=== PATIENT | female | born 1950 | race Caucasian/White ===

== ENCOUNTER 2021-02-24 16:14 | Inpatient (IN) | payer MEDICARE, BC ==
[2021-02-24] MEDS ORDERED: SODIUM CHLORIDE 0.9% 500 ML 500 ML IV ONE (17:18)
--- NOTE | 2021-02-24 17:37 | ED ---
Altered Mental Status HPI - General Chief Complaint: Altered Mental Status Stated Complaint: mental & physical issues Time Seen by Provider: 02/24/21 17:07 Source: patient, family Mode of arrival: ambulatory Limitations: altered mental status - History of Present Illness Initial Comments: 70 year-old female patient presents to the emergency department for evaluation of increasing hallucinations and confused behavior. Patient was recently admitted in [place] for UTI. She was started on Seroquel. She has known mental illness and is maintained on zoloft. Son who is present states she also has dementia. States she did have a good couple of months in December and January. States that over the last couple of weeks she has been more confused, hearing v oices, and leaving the house especially in the middle of the night. Patient states that the voices tell her to go places. State that the voices are going to kill her son because he brought her here. Patient denies any recent rash, fever, chills, cough, shortness of breath, chest pain, abdominal pain, nausea, vomiting, diarrhea, constipation, back pain, numbness, tingling, dizziness, weakness, hematuria, dysuria, urinary urgency, urinary frequency, headache, visual changes, or any other complaints. - Related Data Home Medications Medication Instructions Recorded Confirmed Ciprofloxacin HCl [Cipro] 500 mg PO BID 02/24/21 02/24/21 QUEtiapine [SEROquel] 50 mg PO BID 02/24/21 02/24/21 Sertraline [Zoloft] 50 mg PO DAILY 02/24/21 02/24/21 Allergies Allergy/AdvReac Type Severity Reaction Status Date / Time No Known Allergies Allergy Verified 02/24/21 18:37 Review of Systems ROS Statement: Those systems with pertinent positive or pertinent negative responses have been documented in the HPI. ROS Other: All systems not noted in ROS Statement are negative. Past Medical History Past Medical History: No Reported History History of Any Multi-Drug Resistant Organisms: None Reported Past Surgical History: No Surgical Hx Reported Past Psychological History: Anxiety, Depression Smoking Status: Never smoker Past Alcohol Use History: None Reported Past Drug Use History: None Reported General Exam Limitations: altered mental status General appearance: alert, in no apparent distress, other (This is a well- developed, well-nourished elderly female patient in no acute distress. Vital signs upon presentation are temperature 98.2F, pulse 125, respirations 18, blood pressure 131/75, pulse ox 99% on room air.) ENT exam: Present: normal exam, normal oropharynx, mucous membranes moist Respiratory exam: Present: normal lung sounds bilaterally. Absent: respiratory distress, wheezes, rales, rhonchi, stridor Cardiovascular Exam: Present: regular rate, normal rhythm, normal heart sounds. Absent: systolic murmur, diastolic murmur, rubs, gallop, clicks GI/Abdominal exam: Present: soft, normal bowel sounds. Absent: distended, tenderness, guarding, rebound, rigid Neurological exam: Present: alert, CN II-XII intact. Absent: oriented X3 (Oriented 2) Psychiatric exam: Present: normal affect, normal mood Skin exam: Present: warm, dry, intact, normal color. Absent: rash Course Vital Signs 02/24/21 02/24/21 02/24/21 16:18 18:06 18:30 Temperature 98.2 F Pulse Rate 125 H 86 98 Respiratory 18 18 18 Rate Blood Pressure 131/75 107/84 107/84 O2 Sat by Pulse 99 100 100 Oximetry 02/24/21 02/24/21 19:00 22:00 Temperature Pulse Rate 80 48 L Respiratory 18 18 Rate Blood Pressure 129/79 112/75 O2 Sat by Pulse 100 97 Oximetry Medical Decision Making - Medical Decision Making 70-year-old female patient presents to the emergency department today for evaluation of increased hallucinations and altered mental status. Recent admission at [facility] for her urinary tract infection. Upon arrival patient is requesting comfort. States she does hear voices. Denies suicidal ideation. Labs reviewed and are relatively unremarkable. Urine shows show mild infection. She was evaluated by emergency psychiatric services. The psychiatrist was consulted he would like her admitted for medical admission did change her Seroquel and Zoloft doses. He will consult on her while here. We'll continue antibiotics for UTI. Patient and son are agreeable to this plan. Case discuss ed with my attending Dr. Gill. - Lab Data Result diagrams: 02/24/21 17:59 02/24/21 17:59 Lab Results 02/24/21 02/24/21 02/24/21 Range/Units 17:59 17:59 17:59 WBC 6.3 (3.8-10.6) k/uL RBC 4.32 (3.80-5.40) m/uL Hgb 13.7 (11.4-16.0) gm/dL Hct 42.0 (34.0-46.0) % MCV 97.3 (80.0-100.0) fL MCH 31.8 (25.0-35.0) pg MCHC 32.7 (31.0-37.0) g/dL RDW 14.1 (11.5-15.5) % Plt Count 251 (150-450) k/uL MPV 8.0 Neutrophils % 59 % Lymphocytes % 25 % Monocytes % 9 % Eosinophils % 3 % Basophils % 1 % Neutrophils # 3.7 (1.3-7.7) k/uL Lymphocytes # 1.6 (1.0-4.8) k/uL Monocytes # 0.6 (0-1.0) k/uL Eosinophils # 0.2 (0-0.7) k/uL Basophils # 0.0 (0-0.2) k/uL PT 10.8 (9.0-12.0) sec INR 1.0 (<1.2) APTT 23.6 (22.0-30.0) sec Sodium (137-145) mmol/L Potassium (3.5-5.1) mmol/L Chloride (98-107) mmol/L Carbon Dioxide (22-30) mmol/L Anion Gap mmol/L BUN (7-17) mg/dL Creatinine (0.52-1.04) mg/dL Est GFR (CKD-EPI)AfAm (>60 ml/min/1.73 sqM) Est GFR (CKD-EPI)NonAf (>60 ml/min/1.73 sqM) Glucose (74-99) mg/dL Calcium (8.4-10.2) mg/dL Total Bilirubin (0.2-1.3) mg/dL AST (14-36) U/L ALT (4-34) U/L Alkaline Phosphatase (38-126) U/L Troponin I (0.000-0.034) ng/mL Total Protein (6.3-8.2) g/dL Albumin (3.5-5.0) g/dL TSH (0.465-4.680) mIU/L Urine Color Yellow Urine Appearance Cloudy H (Clear) Urine pH 5.5 (5.0-8.0) Ur Specific Comfort 1.026 (1.001-1.035) Urine Protein 1+ H (Negative) Urine Glucose (UA) Negative (Negative) Urine Ketones 1+ H (Negative) Urine Blood Negative (Negative) Urine Nitrite Negative (Negative) Urine Bilirubin Negative (Negative) Urine Urobilinogen <2.0 (<2.0) mg/dL Ur Leukocyte Esterase Large H (Negative) Urine RBC 7 H (0-5) /hpf Urine WBC 53 H (0-5) /hpf Ur Squamous Epith Cells 27 H (0-4) /hpf Calcium Oxalate Crystal Occasional H (None) /hpf Urine Bacteria Rare H (None) /hpf Hyaline Casts 5 H (0-2) /lpf Urine Mucus Moderate H (None) /hpf Urine Opiates Screen Not Detected (NotDetected) Ur Oxycodone Screen Not Detected (NotDetected) Urine Methadone Screen Not Detected (NotDetected) Ur Propoxyphene Screen Not Detected (NotDetected) Ur Barbiturates Screen Not Detected (NotDetected) U Tricyclic Antidepress Detected H (NotDetected) Ur Phencyclidine Scrn Not Detected (NotDetected) Ur Amphetamines Screen Not Detected (NotDetected) U Methamphetamines Scrn Not Detected (NotDetected) U Benzodiazepines Scrn Not Detected (NotDetected) Urine Cocaine Screen Not Detected (NotDetected) U Marijuana (THC) Screen Not Detected (NotDetected) Serum Alcohol mg/dL 02/24/21 02/24/21 02/24/21 Range/Units 17:59 17:59 17:59 WBC (3.8-10.6) k/uL RBC (3.80-5.40) m/uL Hgb (11.4-16.0) gm/dL Hct (34.0-46.0) % MCV (80.0-100.0) fL MCH (25.0-35.0) pg MCHC (31.0-37.0) g/dL RDW (11.5-15.5) % Plt Count (150-450) k/uL MPV Neutrophils % % Lymphocytes % % Monocytes % % Eosinophils % % Basophils % % Neutrophils # (1.3-7.7) k/uL Lymphocytes # (1.0-4.8) k/uL Monocytes # (0-1.0) k/uL Eosinophils # (0-0.7) k/uL Basophils # (0-0.2) k/uL PT (9.0-12.0) sec INR (<1.2) APTT (22.0-30.0) sec Sodium 139 (137-145) mmol/L Potassium 3.6 (3.5-5.1) mmol/L Chloride 105 (98-107) mmol/L Carbon Dioxide 26 (22-30) mmol/L Anion Gap 8 mmol/L BUN 11 (7-17) mg/dL Creatinine 0.44 L (0.52-1.04) mg/dL Est GFR (CKD-EPI)AfAm >90 (>60 ml/min/1.73 sqM) Est GFR (CKD-EPI)NonAf >90 (>60 ml/min/1.73 sqM) Glucose 104 H (74-99) mg/dL Calcium 9.8 (8.4-10.2) mg/dL Total Bilirubin 0.7 (0.2-1.3) mg/dL AST 41 H (14-36) U/L ALT 23 (4-34) U/L Alkaline Phosphatase 58 (38-126) U/L Troponin I <0.012 (0.000-0.034) ng/mL Total Protein 6.6 (6.3-8.2) g/dL Albumin 3.8 (3.5-5.0) g/dL TSH 2.230 (0.465-4.680) mIU/L Urine Color Urine Appearance (Clear) Urine pH (5.0-8.0) Ur Specific Comfort (1.001-1.035) Urine Protein (Negative) Urine Glucose (UA) (Negative) Urine Ketones (Negative) Urine Blood (Negative) Urine Nitrite (Negative) Urine Bilirubin (Negative) Urine Urobilinogen (<2.0) mg/dL Ur Leukocyte Esterase (Negative) Urine RBC (0-5) /hpf Urine WBC (0-5) /hpf Ur Squamous Epith Cells (0-4) /hpf Calcium Oxalate Crystal (None) /hpf Urine Bacteria (None) /hpf Hyaline Casts (0-2) /lpf Urine Mucus (None) /hpf Urine Opiates Screen (NotDetected) Ur Oxycodone Screen (NotDetected) Urine Methadone Screen (NotDetected) Ur Propoxyphene Screen (NotDetected) Ur Barbiturates Screen (NotDetected) U Tricyclic Antidepress (NotDetected) Ur Phencyclidine Scrn (NotDetected) Ur Amphetamines Screen (NotDetected) U Methamphetamines Scrn (NotDetected) U Benzodiazepines Scrn (NotDetected) Urine Cocaine Screen (NotDetected) U Marijuana (THC) Screen (NotDetected) Serum Alcohol <10 mg/dL - EKG Data -: EKG Interpreted by Me EKG Comments: EKG obtained at 1813 shows sinus tachycardia with ventricular rate of 112, MO interval 162, QR taoist 90, QT 320, QTC 436. No evidence of ST elevation or depression. - Radiology Data Radiology results: report reviewed, image reviewed Two-view x-ray of the chest showed no active cardiopulmonary disease. Normal heart. Disposition Clinical Impression: Altered mental status, UTI (urinary tract infection), Hallucinations Disposition: ADMITTED IP TO THIS [facility] Condition: Serious Decision to Admit Reason: Admit from EC Decision Date: 02/24/21 Decision Time: 21:54
[2021-02-24 18:21] LABS: Basophils % (A) 1 %; Eosinophils # (A) 0.2 k/uL (0-0.7); Eosinophils % (A) 3 %; HGB 13.7 gm/dL (11.4-16.0); Lymphocytes # (A) 1.6 k/uL (1.0-4.8); Lymphocytes % (A) 25 %; MCH 31.8 pg (25.0-35.0); MCHC 32.7 g/dL (31.0-37.0); MCV 97.3 fL (80.0-100.0); Monocytes # (A) 0.6 k/uL (0-1.0); Monocytes % (A) 9 %; Neutrophils # (A) 3.7 k/uL (1.3-7.7); Neutrophils % (A) 59 %; Platelet Count 251 k/uL (150-450); RBC 4.32 m/uL (3.80-5.40); RDW 14.1 % (11.5-15.5); WBC 6.3 k/uL (3.8-10.6)
[2021-02-24 18:23] LABS: Appearance,Urine Cloudy (Clear); Bacteria,Urine Rare /hpf; Bilirubin,Urine Negative (Negative); Blood,Urine Negative (Negative); Calcium Oxalate Crystals,Urine Occasional /hpf; Color,Urine Yellow; Glucose,Urine (UA) Negative (Negative); Hyaline Casts,Urine 5 /lpf (0-2); Ketones,Urine 1+ (Negative); Leukocyte Esterase,Urine Large (Negative); Mucus,Urine Moderate /hpf; Nitrite,Urine Negative (Negative); PH, Urine 5.5 (5.0-8.0); Protein,Urine 1+ (Negative); RBC,Urine 7 /hpf (0-5); Specific Gravity,Urine 1.026 (1.001-1.035); Squamous Epithelial Cell,Urine 27 /hpf (0-4); Urobilinogen,Urine <2.0 mg/dL (<2.0); WBC,Urine 53 /hpf (0-5)
[2021-02-24 18:30] LABS: Amphetamine Screen,Urine Not Detected (NotDetected); Barbiturate Screen,Urine Not Detected (NotDetected); Benzodiazepines Screen,Urine Not Detected (NotDetected); Cocaine Screen,Urine Not Detected (NotDetected); Methadone Screen, Urine Not Detected (NotDetected); Opiate Screen,Urine Not Detected (NotDetected); Oxycodone Screen, Urine Not Detected (NotDetected); Phencyclidine Screen,Urine Not Detected (NotDetected); Tricyclic Antidepressant,Urine Detected (NotDetected); Urn Cannabinoid Scrn Not Detected (NotDetected)
[2021-02-24 18:34] LABS: Partial Thromboplastin Time 23.6 sec (22.0-30.0); Prothrombin Time 10.8 sec (9.0-12.0)
[2021-02-24 18:37] LABS: ALT 23 U/L (4-34); AST 41 U/L (14-36); African American GFR (CKD) >90 (>60 ml/min/1.73 sqM); Albumin 3.8 g/dL (3.5-5.0); Alcohol <10 mg/dL; Alkaline Phosphatase 58 U/L (38-126); Anion Gap 8 mmol/L; Blood Urea Nitrogen 11 mg/dL (7-17); Calcium 9.8 mg/dL (8.4-10.2); Carbon Dioxide 26 mmol/L (22-30); Chloride 105 mmol/L (98-107); Glucose 104 mg/dL (74-99); Non-African American GFR(CKD) >90 (>60 ml/min/1.73 sqM); Potassium 3.6 mmol/L (3.5-5.1); Sodium 139 mmol/L (137-145); Total Bilirubin 0.7 mg/dL (0.2-1.3); Total Protein 6.6 g/dL (6.3-8.2)
--- NOTE | 2021-02-24 21:01 | XR ---
EXAMINATION TYPE: XR chest 2V DATE OF EXAM: 02/24/2021 COMPARISON: NONE HISTORY: Altered mental status TECHNIQUE: 2 view FINDINGS: There is no heart failure nor confluent pneumonic infiltrate. Costophrenic angles are clear . Thoracic aorta is atheromatous. There are no hilar masses. There are chest leads. IMPRESSION: No active cardiopulmonary disease. Normal heart.
[2021-02-24] MEDS ORDERED: QUEtiapine 100 MG TAB PO STA (21:55)
[2021-02-24] MEDS ORDERED: cefTRIAXone IN SWFI 1,000 MG/10 ML SYRINGE IVP STA (21:56)
[2021-02-24] MEDS ORDERED: NALOXONE 0.4 MG/ML 1 ML VIAL IV PRN (22:37)
[2021-02-25] MEDS: SERTRALINE 50 MG TAB PO SCH (06:48)
[2021-02-25 11:47] LABS: Folate, Serum 9.8 ng/mL (4.40-31.00)
--- NOTE | 2021-02-25 13:52 | P.HPIM ---
History of Present Illness H&P Date: 02/25/21 70 years old female with past medical history of anxiety/depression comes in with increased confusion and hallucinations. According to the son patient was doing well until August when his father got sick which led to hallucinations and change in mental status in her mother. Sh was started on Zoloft by primary care physician and started seeing psychiatrist. Patient is a poor historian unable to provide any history but apparently was admitted in [place] for UTI and was started on ciprofloxacin. She was initiated on Seroquel by the hospital. Apparently does not have underlying dementia and was doing well for the past few months until started having worsening hallucinations and confusion. The psychiatrist recommended going to the hospital as patient was confused. She states she heard voices that asked her to harm her family and leave the house.. Patient denies suicidal ideation. Patient is very slow to respond and appear confused. She is able to answer all the orientation questions though. She denies any fever or chills or rash, denies any chest pain shortness of breath or abdominal pain. Patient denies any nausea vomiting diarrhea or constipation. On evaluation the patient was afebrile and tachycardic to 125 respiratory rate 18 blood pressure 131/75. Labs are reviewed patient's CBC was unremarkable BUN 11 creatinine 0.44. Psychiatrist was consulted overnight and made changes to her Seroquel dosing. Urine analysis was suggestive of UTI. Patient started on Rocephin 1 g every 24 hours. ROS Constitutional: Denies chills, Denies fever, Denies lethargy, Denies malaise, Denies poor appetite, Denies weakness, Denies weight loss Eyes: denies decreased vision, denies diplopia, denies discharge, denies pain Ears: deny: decreased hearing Ears, nose, mouth and throat: Denies dental pain, Denies headache, Denies nasal discharge, Denies nose pain Cardiovascular: Denies chest pain, Denies decreased exercise tolerance, Denies edema, Denies high blood pressure, Denies irregular heart beat, Denies palpitations, Denies paroxysmal nocturnal dyspnea, Denies rapid heart beat, Denies shortness of breath Respiratory: Denies congestion, Denies cough, Denies cough with sputum, Denies dyspnea, Denies home oxygen, Denies wheezing Gastrointestinal: Denies abdominal pain, Denies change in bowel habits, Denies coffee ground emesis, Denies early satiety, Denies excessive gas, Denies heartburn, Denies hematemesis, Denies hematochezia, Denies loss of appetite, Den ies nausea, Denies vomiting Genitourinary: Denies dysuria, Denies flank pain, Denies kidney stones, Denies menorrhagia, Denies urgency, Denies urinary frequency Musculoskeletal: Denies gait dysfunction, Denies limitation of motion, Denies morning stiffness, Denies muscle cramps Integumentary: Denies rash, Denies wounds, Denies brittle nails, Denies change in hair/nails, Denies darkening of skin Neurological: Denies balance difficulties, Denies change in speech, Denies double vision, Denies gait dysfunction, Denies loss of vision, Denies motor disturbance, Denies numbness, Denies paralysis, Denies paresthesias, Denies seizures Psychiatric: Endorses anxiety and depression endorses confusion Endocrine: Denies excessive sweating, Denies excessive thirst, Denies high blood sugars, Denies palpitations Hematologic/Lymphatic: Denies easy bruising, Denies lymphadenopathy Social history Patient lives with her , nonsmoker nondrinker. Son helps with finance Family history Mom disease at age of 69 from myocardial infarction Father at age of 59 from diabetes and diabetic complications Brother does not know much medical history Sr. is coronary artery disease and multiple health problems Has 2 sons that are healthy Physical exam - Constitutional General appearance: cooperative, no acute distress, thin cachectic - EENT Eyes: anicteric sclerae, PERRLA, normal appearance ENT: hearing grossly normal - Neck Neck: no lymphadenopathy, normal ROM, no other, no rigidity, no stridor, no thyromegaly - Respiratory Respiratory: bilateral: CTA, negative: diminished, dullness, rales, rhonchi - Cardiovascular Rhythm: regular Heart sounds: normal: S1, S2 Abnormal Heart Sounds: no systolic murmur, no diastolic murmur, no rub, no S3 Gallop, no S4 Gallop, no click, no other - Gastrointestinal General gastrointestinal: normal bowel sounds, soft nontender - Integumentary Integumentary: no rash - Neurologic Neurologic: No motor or sensory deficit. - Musculoskeletal Musculoskeletal: gait could not be assessed, strength equal bilaterally - Psychiatric Psychiatric: A&O x's 2, appropriate affect Assessment and plan #1 acute psychosis with Auditory hallucinations rule out acute metabolic encephalopathy from UTI. No visual hallucination. Urine drug screen negative. TSH normal. Patient may have underlying schizotypal personality disorder and psychiatrist was consulted. Delirium is likely though auditory hallucinations are uncommon with delirium. Seroquel switch to 125 mg at bedtime per psychiatrist recommendation continue Zoloft #2 acute UTI. UA positive for infection continue Rocephin 1 g every 24 hours urine culture is pending #3 anxiety/depression continue Zoloft 50 mg daily. #4 CODE STATUS full code #5 DVT prophylaxis with heparin every 12 #6 disposition patient to be treated for UTI and may need transfer to [facility] facilities for acute psychosis. Past Medical History Past Medical History: No Reported History History of Any Multi-Drug Resistant Organisms: None Reported Past Surgical History: No Surgical Hx Reported Past Anesthesia/Blood Transfusion Reactions: No Reported Reaction Past Psychological History: Anxiety, Depression Smoking Status: Never smoker Past Alcohol Use History: None Reported Past Drug Use History: None Reported Medications and Allergies Home Medications Medication Instructions Recorded Confirmed Type Ciprofloxacin HCl [Cipro] 500 mg PO BID 02/24/21 02/24/21 History QUEtiapine [SEROquel] 50 mg PO BID 02/24/21 02/24/21 History Sertraline [Zoloft] 50 mg PO DAILY 02/24/21 02/24/21 History Allergies Allergy/AdvReac Type Severity Reaction Status Date / Time No Known Allergies Allergy Verified 02/24/21 18:37 Physical Exam Vitals: Vital Signs Temp Pulse Pulse Resp BP BP Pulse Ox 02/25/21 07:09 98.1 F 100 17 121/74 100 02/25/21 07:00 100 17 02/25/21 01:27 97.7 F 93 106/70 98 02/25/21 01:03 78 16 116/78 95 02/24/21 22:00 48 L 18 112/75 97 02/24/21 19:00 80 18 129/79 100 02/24/21 18:30 98 18 107/84 100 02/24/21 18:06 86 18 107/84 100 02/24/21 16:18 98.2 F 125 H 18 131/75 99 Intake and Output 02/24/21 02/25/21 02/25/21 22:59 06:59 14:59 Intake Total 240 Balance 240 Intake: Oral 240 Other: # Voids 1 Weight 58.06 kg 58.06 kg Results CBC & Chem 7: 02/24/21 17:59 02/24/21 17:59 Labs: Abnormal Lab Results - Last 24 Hours (Table) 02/24/21 02/24/21 Range/Units 17:59 17:59 Creatinine 0.44 L (0.52-1.04) mg/dL Glucose 104 H (74-99) mg/dL AST 41 H (14-36) U/L Urine Appearance Cloudy H (Clear) Urine Protein 1+ H (Negative) Urine Ketones 1+ H (Negative) Ur Leukocyte Esterase Large H (Negative) Urine RBC 7 H (0-5) /hpf Urine WBC 53 H (0-5) /hpf Ur Squamous Epith Cells 27 H (0-4) /hpf Calcium Oxalate Crystal Occasional H (None) /hpf Urine Bacteria Rare H (None) /hpf Hyaline Casts 5 H (0-2) /lpf Urine Mucus Moderate H (None) /hpf U Tricyclic Antidepress Detected H (NotDetected) Microbiology - Last 24 Hours (Table) 02/24/21 17:59 Urine Culture - Preliminary Urine,Clean Catch Thrombosis Risk Factor Assmnt - Choose All That Apply Each Risk Factor Represents 2 Points: Age 61-74 years Thrombosis Risk Factor Assessment Total Risk Factor Score: 2 Thrombosis Risk Factor Assessment Level: Low Risk
--- NOTE | 2021-02-25 14:06 | P.CN ---
Psychiatric Consult - . Consult date: 02/25/21 Consult:: 02/25/21 14:05 IDENTIFYING DATA: This patient is a , retired, 70-year-old female who presents to the hospital with altered mental status. HISTORY OF PRESENT ILLNESS: The patient presented to the hospital on 02/24/2021, thought to the emergency department by her son for auditory hallucinations. Upon evaluation by the EPS nurse, the patient was noted to endorse auditory hallucinations that tell her that she has to "go somewhere into something." Information provided to the EPS nurse by the patient's son reported that the patient left the house several times last night and was found wandering down the road and at another time was attempting to take her 's car. These auditory hallucinations appeared to be new in onset and have been occurring over the last few weeks. The patient was found to have urinary tract infection on urinalysis and was subsequently admitted to the medical floor. Upon evaluation on the medical floor, the patient continues to endorse significant psychotic symptoms. The patient states that she is expressing auditory hallucinations that tell her that she has to go and do something. Furthermore, the patient has been endorsing significant paranoia and delusions. She states that if she does not with the voices, her family's safety is at risk. She is currently not endorsing any suicidal or homicidal ideation, intention, and/or plan. She does report that she had suicidal thoughts and states that this occurred approximately 10 years ago. She is currently not reporting any visual hallucinations. The patient has been noted to have a similar episode to this earlier this week during which she was admitted to the hospital in [place]. She again was testing positive for urinary tract infection and was given antibiotic medications. The patient's son reports that the patient has been nonadherent with these medications. Patient does not endorse any significant history of bipolar disorder. She denies any periods of excessive energy, mood lability, increased goal-directed activity, or grandiosity. The patient's son reports that the onset of psychiatric symptoms began in August after the patient's became sick and was [facility]. He reports that for mental health began to decline and she became increasingly anxious. This is when she was first started on Zoloft by her primary care physician. The patient has also started seeing a psychiatrist in [place]. PAST PSYCHIATRIC HISTORY: Patient has a history of depression/anxiety. The patient is on a regimen of Zoloft and was started on Seroquel during her last UTI earlier last week. Patient denies any previous psychiatric hospitalizations. The patient is open with the [facility] with Zi Wynn. Patient denies any history of suicide attempts in the past. PAST MEDICAL HISTORY: Past Medical History: No Reported History History of Any Multi-Drug Resistant Organisms: None Reported Past Surgical History: No Surgical Hx Reported Past Anesthesia/Blood Transfusion Reactions: No Reported Reaction Past Psychological History: Anxiety, Depression Smoking Status: Never smoker Past Alcohol Use History: None Reported Past Drug Use History: None Reported ALLERGIES: as per EMR. CHEMICAL DEPENDENCY HISTORY: Patient denies any tobacco, marijuana, or illicit drug use. She reports no significant alcohol use. FAMILY PSYCHIATRIC/SUBSTANCE USE HISTORY: No reported psychiatric history. No reported history of substance abuse. The patient's son states that the patient came from a "difficult upbringing." SOCIAL HISTORY: Patient is currently to her but states that they " this week." She has 2 sons. She was born and raised in [place]. 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 She reports 12th grade education. MENTAL STATUS EXAM: General Appearance: Patient appears to be stated age is alert, pleasant, and cooperative. Patient appears to have fair hygiene and grooming wearing hospital gown with fair eye contact. Patient is wearing glasses. Behavior: Patient is calmly lying in bed without any agitated behavior. Speech: Patient's speech is fluent and nonpressured. Mood/Affect: Patient reports their mood is "scared", affect is flat. Suicidality/Homicidality: Patient denies any suicidal or homicidal ideation, intention, and/or plan. Perceptions: Patient denies any visual hallucinations but the patient endorses auditory hallucinations. Though content/process: The patient endorses paranoid delusions. Thought process appears to be linear but illogical. Memory and concentration: AOX3, grossly intact for the purposes of this session. Can spell "WORLD" backwards Judgment and insight: poor Vital Signs Temp 98.1 F 02/25/21 07:09 Pulse 100 02/25/21 07:09 Resp 17 02/25/21 07:09 BP 121/74 02/25/21 07:09 Pulse Ox 100 02/25/21 07:09 Intake & Output 02/24/21 02/25/21 02/25/21 18:59 06:59 18:59 Intake Total 240 Balance 240 Weight 58.06 kg 58.06 kg Intake: Oral 240 Other: # Voids 1 Laboratory Results - Last 24 Hours 02/24/21 02/24/21 02/24/21 17:59 17:59 17:59 WBC 6.3 RBC 4.32 Hgb 13.7 Hct 42.0 MCV 97.3 MCH 31.8 MCHC 32.7 RDW 14.1 Plt Count 251 MPV 8.0 Neutrophils % 59 Lymphocytes % 25 Monocytes % 9 Eosinophils % 3 Basophils % 1 Neutrophils # 3.7 Lymphocytes # 1.6 Monocytes # 0.6 Eosinophils # 0.2 Basophils # 0.0 PT 10.8 INR 1.0 APTT 23.6 Sodium Potassium Chloride Carbon Dioxide Anion Gap BUN Creatinine Est GFR (CKD-EPI)AfAm Est GFR (CKD-EPI)NonAf Glucose Calcium Total Bilirubin AST ALT Alkaline Phosphatase Troponin I Total Protein Albumin Vitamin B12 Folate TSH Urine Color Yellow Urine Appearance Cloudy H Urine pH 5.5 Ur Specific [place] 1.026 Urine Protein 1+ H Urine Glucose (UA) Negative Urine Ketones 1+ H Urine Blood Negative Urine Nitrite Negative Urine Bilirubin Negative Urine Urobilinogen <2.0 Ur Leukocyte Esterase Large H Urine RBC 7 H Urine WBC 53 H Ur Squamous Epith Cells 27 H Calcium Oxalate Crystal Occasional H Urine Bacteria Rare H Hyaline Casts 5 H Urine Mucus Moderate H Urine Opiates Screen Not Detected Ur Oxycodone Screen Not Detected Urine Methadone Screen Not Detected Ur Propoxyphene Screen Not Detected Ur Barbiturates Screen Not Detected U Tricyclic Antidepress Detected H Ur Phencyclidine Scrn Not Detected Ur Amphetamines Screen Not Detected U Methamphetamines Scrn Not Detected U Benzodiazepines Scrn Not Detected Urine Cocaine Screen Not Detected U Marijuana (THC) Screen Not Detected Serum Alcohol Coronavirus (PCR) 02/24/21 02/24/21 02/24/21 17:59 17:59 17:59 WBC RBC Hgb Hct MCV MCH MCHC RDW Plt Count MPV Neutrophils % Lymphocytes % Monocytes % Eosinophils % Basophils % Neutrophils # Lymphocytes # Monocytes # Eosinophils # Basophils # PT INR APTT Sodium 139 Potassium 3.6 Chloride 105 Carbon Dioxide 26 Anion Gap 8 BUN 11 Creatinine 0.44 L Est GFR (CKD-EPI)AfAm >90 Est GFR (CKD-EPI)NonAf >90 Glucose 104 H Calcium 9.8 Total Bilirubin 0.7 AST 41 H ALT 23 Alkaline Phosphatase 58 Troponin I <0.012 Total Protein 6.6 Albumin 3.8 Vitamin B12 464.0 Folate 9.80 TSH 2.230 Urine Color Urine Appearance Urine pH Ur Specific [place] Urine Protein Urine Glucose (UA) Urine Ketones Urine Blood Urine Nitrite Urine Bilirubin Urine Urobilinogen Ur Leukocyte Esterase Urine RBC Urine WBC Ur Squamous Epith Cells Calcium Oxalate Crystal Urine Bacteria Hyaline Casts Urine Mucus Urine Opiates Screen Ur Oxycodone Screen Urine Methadone Screen Ur Propoxyphene Screen Ur Barbiturates Screen U Tricyclic Antidepress Ur Phencyclidine Scrn Ur Amphetamines Screen U Methamphetamines Scrn U Benzodiazepines Scrn Urine Cocaine Screen U Marijuana (THC) Screen Serum Alcohol <10 Coronavirus (PCR) 02/24/21 22:19 WBC RBC Hgb Hct MCV MCH MCHC RDW Plt Count MPV Neutrophils % Lymphocytes % Monocytes % Eosinophils % Basophils % Neutrophils # Lymphocytes # Monocytes # Eosinophils # Basophils # PT INR APTT Sodium Potassium Chloride Carbon Dioxide Anion Gap BUN Creatinine Est GFR (CKD-EPI)AfAm Est GFR (CKD-EPI)NonAf Glucose Calcium Total Bilirubin AST ALT Alkaline Phosphatase Troponin I Total Protein Albumin Vitamin B12 Folate TSH Urine Color Urine Appearance Urine pH Ur Specific [place] Urine Protein Urine Glucose (UA) Urine Ketones Urine Blood Urine Nitrite Urine Bilirubin Urine Urobilinogen Ur Leukocyte Esterase Urine RBC Urine WBC Ur Squamous Epith Cells Calcium Oxalate Crystal Urine Bacteria Hyaline Casts Urine Mucus Urine Opiates Screen Ur Oxycodone Screen Urine Methadone Screen Ur Propoxyphene Screen Ur Barbiturates Screen U Tricyclic Antidepress Ur Phencyclidine Scrn Ur Amphetamines Screen U Methamphetamines Scrn U Benzodiazepines Scrn Urine Cocaine Screen U Marijuana (THC) Screen Serum Alcohol Coronavirus (PCR) Not Detected IMPRESSIONS: Acute psychosis, suspect secondary to urinary tract infection -patient was nonadherent with her antibiotic medication and her antipsychotic medication during her last hospitalization as per discussion with the patient's son. PLAN: -Continue your medical management for urinary tract infection -TSH him a B12, and folate were reviewed and within normal limits. -At this time patient DOES NOT meet criteria for inpatient psychiatric admission. Suspect that the patient's psychosis is related to her urinary tract infection. The patient's age of onset of acute psychotic symptoms is not consistent with a diagnosis of schizophrenia. Furthermore the length of time that the symptoms have been present is not consistent with the diagnosis of schizophrenia. Psychiatry will continue to monitor and reevaluate the patient should she require inpatient psychiatric admission. -Delirium precautions recommended with patient including - avoiding use of narcotics and SKID STRAPPER sedatives, limit anticholinergic medications when possible, frequent re-orientation, minimize use of restraints, open window shades during the day and close them at night -Would recommend the following medication changes/additions: We will increase Seroquel to 125 mg at bedtime for psychosis. Continue Zoloft 50 mg daily for depression/anxiety Monitor patient for medication adherence. As per son, the patient is known to "cheek" medications. -Will continue to follow along 02/25/21 14:05 02/25/21 14:05
[2021-02-25] MEDS: QUEtiapine 50 MG TAB PO SCH (20:39)
[2021-02-25] MEDS: HEPARIN SODIUM,PORCINE/PF 5,000 UNIT/0.5 ML SYRINGE SQ SCH (20:39)
[2021-02-25] MEDS ORDERED: QUEtiapine 100 MG TAB PO SCH (21:00)
[2021-02-26] MEDS: HEPARIN SODIUM,PORCINE/PF 5,000 UNIT/0.5 ML SYRINGE SQ SCH ×2 (07:59→21:24)
[2021-02-26] MEDS: SERTRALINE 50 MG TAB PO SCH (07:59)
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
[2021-02-26] MEDS: QUEtiapine 50 MG TAB PO SCH (21:24)
[2021-02-27] MEDS: FAMOTIDINE 20 MG TAB PO SCH (07:44)
[2021-02-27] MEDS: HEPARIN SODIUM,PORCINE/PF 5,000 UNIT/0.5 ML SYRINGE SQ SCH ×2 (07:44→21:06)
[2021-02-27] MEDS: SERTRALINE 50 MG TAB PO SCH (07:44)
[2021-02-27 08:26] LABS: ALT 22 U/L (4-34); AST 33 U/L (14-36); African American GFR (CKD) >90 (>60 ml/min/1.73 sqM); Albumin 2.9 g/dL (3.5-5.0); Albumin/Globulin Ratio 1.2; Alkaline Phosphatase 49 U/L (38-126); Anion Gap 6 mmol/L; Blood Urea Nitrogen 7 mg/dL (7-17); Calcium 9.4 mg/dL (8.4-10.2); Carbon Dioxide 25 mmol/L (22-30); Chloride 109 mmol/L (98-107); Globulin 2.5 g/dL; Glucose 91 mg/dL (74-99); Non-African American GFR(CKD) >90 (>60 ml/min/1.73 sqM); Potassium 3.5 mmol/L (3.5-5.1); Sodium 140 mmol/L (137-145); Total Bilirubin 0.6 mg/dL (0.2-1.3); Total Protein 5.4 g/dL (6.3-8.2)
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
[2021-02-27 12:15] LABS: Basophils # (A) 0.04 X 10*3/uL (0.00-0.10); Basophils % (A) 0.7 %; Eosinophils # (A) 0.24 X 10*3/uL (0.04-0.35); Eosinophils % (A) 4.3 %; HCT 40.3 % (37.2-46.3); HGB 13.1 g/dL (12.0-15.0); Lymphocytes # (A) 1.33 X 10*3/uL (0.90-5.00); Lymphocytes % (A) 23.8 %; MCH 32.3 pg (27.0-32.0); MCHC 32.5 g/dL (32.0-37.0); MCV 99.3 fL (80.0-97.0); Mean Platelet Volume 11.4 fL (9.5-12.2); Monocytes # (A) 0.62 X 10*3/uL (0.20-1.00); Monocytes % (A) 11.1 %; Neutrophils # (A) 3.34 X 10*3/uL (1.80-7.70); Neutrophils % (A) 59.9 %; Platelet Count 224 X 10*3/uL (140-440); RBC 4.06 X 10*6/uL (4.10-5.20); RDW 14.7 % (11.5-14.5); WBC 5.58 X 10*3/uL (4.50-10.00)
[2021-02-27] MEDS: QUEtiapine 50 MG TAB PO SCH (21:07)
[2021-02-28] MEDS: HEPARIN SODIUM,PORCINE/PF 5,000 UNIT/0.5 ML SYRINGE SQ SCH ×2 (07:47→20:24)
[2021-02-28] MEDS: SERTRALINE 50 MG TAB PO SCH (07:48)
[2021-02-28] MEDS: FAMOTIDINE 20 MG TAB PO SCH (07:48)
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
--- NOTE | 2021-02-28 13:52 | P.PN ---
Progress Note - Text Progress Note Date: 02/28/21 Interval History: Patient was seen resting in bed without any agitated behavior. Currently, the patient continues to endorse auditory hallucinations. The patient does report that these hallucinations are telling her things and continue to be present. She states that she remains fearful about what is going on that these hallucinations continued to bother her. She denies any overt paranoia but states that she does feel like she is in danger. She denies any suicidal josephine ation, intention, and/or plan. She does report some homicidal ideation today but is vague on the subject and does not clarify as to whom she is homicidal towards. She has been adherent with her medications and is not endorsing any significant side effects at this time. Despite her endorsement of psychiatric symptoms, the patient remains oriented and alert in all spheres. Mental Status Exam: General Appearance: Patient appears to be stated age is alert, directable, and cooperative. Patient is wearing glasses. Slightly disheveled. Dressed in hospital gown. Behavior: Patient is calmly seated without any agitated behavior. Eye contact is appropriate. Speech: Patient's speech is fluent and nonpressured. Monotone, nonspontaneous. Mood/Affect: Mood is "scared." Affect is blunted. Suicidality/Homicidality: Patient denies any suicidal ideation, intention, and/or plan. The patient endorses homicidal ideation. Perceptions: Patient endorses auditory hallucinations but no visual halluci nations. Though content/process: The patient endorses paranoid delusional thought content. Thought process appears to be linear but illogical. Memory and concentration: AOX3, grossly intact for the purposes of this session Judgment and insight: Poor Vital Signs Temp 98.2 F 02/28/21 06:51 Pulse 100 02/28/21 06:51 Resp 18 02/28/21 06:51 BP 124/81 02/28/21 06:51 Pulse Ox 95 02/28/21 06:51 Intake & Output 02/27/21 02/28/21 02/28/21 18:59 06:59 18:59 Other: Voiding Method Toilet Toilet # Voids 1 0 # Bowel Movements 0 Assessment Acute psychosis Plan: -At this time patient DOES meet criteria for geriatric inpatient psychiatric admission. The patient continues to endorse significant symptoms of psychosis. The patient is endorsing auditory hallucinations which continue to be present. She does express that these are ego dystonic and causing her significant distress. She does admit to elevated paranoia and fear. She does express some homicidal ideation today but is vague on the subject. -As our milieu is currently acute, we will make the recommendation for transfer to a geriatric psychiatric unit. We will continue to manage the patient psychiatrically while she is on the medical floor and the treatment team pursues inpatient geriatric psychiatric treatment. -Delirium precautions recommended with patient including - avoiding use of narcotics and [employer] CH[employer]ERK sedatives, limit anticholinergic medications when possible, frequent re-orientation, minimize use of restraints, open window shades during the day and close them at night, -Would recommend the following medication changes/additions: We will increase Seroquel to 150 mg at bedtime for psychosis. Continue Zoloft 50 mg daily for depression/anxiety Monitor patient for medication adherence. As per son, the patient is known to "cheek" medications. -Patient will require a petition and certificate should the patient choose to leave [place]. Recommend patient's son to petition the patient should this be the case. -Will continue to follow along
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
[2021-02-28] MEDS ORDERED: QUEtiapine 50 MG TAB PO SCH (21:00)
[2021-03-01] MEDS: FAMOTIDINE 20 MG TAB PO SCH (07:18)
[2021-03-01] MEDS: HEPARIN SODIUM,PORCINE/PF 5,000 UNIT/0.5 ML SYRINGE SQ SCH ×2 (07:18→21:54)
[2021-03-01] MEDS: SERTRALINE 50 MG TAB PO SCH (07:18)
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
--- NOTE | 2021-03-01 13:46 | P.PN ---
Progress Note - Text Progress Note Date: 03/01/21 Interval History: Patient was seen resting in bed without any agitated behavior. Patient at the patient's bedside is the patient's and son. The patient does report an overall improvement in regards to her psychotic symptoms. She is currently denying any visual hallucinations but endorses that the auditory hallucinations continued to be present but are less severe and intense as before. The patient does continue to endorse significant symptoms of paranoia. She states that she is scared that somebody or some people are after her and her family. She does express concern for the safety of her and of her son. The patient is unable to identify who would be after them. The patient does appear to be bothered by these thoughts. The patient's son continues to express concern for the patient's psychotic symptoms as he states that the patient does act on these symptoms and has attempted to drive away and has wandered away from the home in response to her paranoia. The patient has been adherent with her medications but does endorse sedation. The patient's son also expresses concern for the patient's sedation with the medication. The patient's son continues to be in agreement for inpatient psychiatric treatment for this patient. The patient otherwise remains alert and oriented in all spheres. Mental Status Exam: General Appearance: Patient appears to be stated age is alert, directable, and cooperative. Patient is wearing glasses. Slightly disheveled. Dressed in hospital gown. Wearing glasses. Behavior: Patient is calmly seated without any agitated behavior. Eye contact is appropriate. Speech: Patient's speech is fluent and nonpressured. Monotone, nonspontaneous. Mood/Affect: Mood is "better." Affect is blunted and at times anxious. Suicidality/Homicidality: Patient denies any suicidal or homicidal ideation, intention, and/or plan. Perceptions: Patient endorses auditory hallucinations but no visual hallucinations. Though content/process: The patient endorses paranoid delusional thought content. Thought process appears to be linear but illogical. Memory and concentration: AOX3, grossly intact for the purposes of this session Judgment and insight: Poor Vital Signs Temp 98.0 F 03/01/21 07:57 Pulse 78 03/01/21 07:57 Resp 16 03/01/21 07:57 BP 107/69 03/01/21 07:57 Pulse Ox 96 03/01/21 07:57 Intake & Output 02/28/21 03/01/21 03/01/21 18:59 06:59 18:59 Intake Total 75 75 Output Total 300 Balance -225 75 Intake: Oral 75 75 Output: Urine 300 Other: Voiding Method Toilet Toilet # Voids 1 # Bowel Movements 0 Assessment Acute psychosis Plan: -At this time patient DOES meet criteria for geriatric inpatient psychiatric admission. The patient continues to endorse significant symptoms of psychosis. The patient is endorsing auditory hallucinations and paranoia. The patient has acted on these symptoms placing her in an inadvertent risk of harm to self or others. -As our milieu is currently acute, we will make the recommendation for transfer to a geriatric psychiatric unit. We will continue to manage the patient psychiatrically while she is on the medical floor as the treatment team pursues inpatient geriatric psychiatric treatment. -Delirium precautions recommended with patient including - avoiding use of narcotics and SHOE LACER sedatives, limit anticholinergic medications when possible, frequent re-orientation, minimize use of restraints, open window shades during the day and close them at night, -Would recommend the following medication changes/additions: Due to concerns for sedation, we we'll discontinue Seroquel and start the patient on Risperdal 0.5 mg twice a day starting tonight. Continue Zoloft 50 mg daily for depression/anxiety -The risks, benefits, treatment alternatives of medications were discussed with patient and her family in great detail. We discussed at length the black box warning of antipsychotic medications with elderly and increase the risk of morbidity and mortality. The patient and her family are in agreement to continue antipsychotic medications. -Will continue to follow along
[2021-03-01] MEDS: risperiDONE 0.5 MG TAB PO SCH (21:54)
[2021-03-02] MEDS: risperiDONE 0.5 MG TAB PO SCH (07:29)
[2021-03-02] MEDS: FAMOTIDINE 20 MG TAB PO SCH (07:29)
[2021-03-02] MEDS: HEPARIN SODIUM,PORCINE/PF 5,000 UNIT/0.5 ML SYRINGE SQ SCH (07:29)
[2021-03-02] MEDS: SERTRALINE 50 MG TAB PO SCH (07:29)
--- NOTE | 2021-03-02 14:24 | P.PN ---
Progress Note - Text Progress Note Date: 03/02/21 Interval History: Patient was seen resting in bed. The patient is currently not reporting any suicidal or homicidal ideation, intention, and/or plan. She reports that she was expressing auditory hallucinations earlier during the day but states that they are no longer present. The patient states that overall, her auditory hallucinations have decreased significantly since this admission. She does state that she did experience some paranoia this morning, believing that somebody or some people were after her family. She does acknowledge during this interview that this thought was bizarre and that it made no sense. The patient states that she does not believe this any more. She is currently adherent with the medications and is not endorsing any significant side effects at this time. The patient does express a strong desire to return home to be with her family. Mental Status Exam: General Appearance: Patient appears to be stated age is alert, directable, and cooperative. Patient is wearing glasses. Dressed in hospital gown. Wearing glasses. Behavior: Patient is calmly seated without any agitated behavior. Eye contact is appropriate. Speech: Patient's speech is fluent and nonpressured. Monotone, nonspontaneous. Mood/Affect: Mood is "better." Affect is blunted. Suicidality/Homicidality: Patient denies any suicidal or homicidal ideation, intention, and/or plan. Perceptions: Patient denies any current auditory or visual hallucinations. Though content/process: The patient endorses paranoid delusional thought content this morning but identified it was a bizarre thought. She is currently not endorsing any delusions. Thought process appears to be linear and logical. Memory and concentration: AOX3, grossly intact for the purposes of this session Judgment and insight: Improving Vital Signs Temp 98.9 F 03/02/21 08:00 Pulse 84 03/02/21 08:00 Resp 18 03/02/21 08:00 BP 107/68 03/02/21 08:00 Pulse Ox 92 L 03/02/21 08:00 Intake & Output 03/01/21 03/02/21 03/02/21 18:59 06:59 18:59 Intake Total 150 120 240 Output Total 350 Balance 150 -230 240 Intake: Oral 150 120 240 Output: Urine 350 Other: Voiding Method Toilet # Voids 1 1 # Bowel Movements 0 Assessment Acute psychosis Plan: -At this time, the patient is appropriate to return back home with supervision provided by the patient's son. The patient has been adherent with her medications and has had a significant decrease in her psychotic symptoms. Furthermore, the patient appears to be tolerating the medications well. She would likely benefit from familiarity of her surroundings. -Would recommend the following medication changes/additions: Continue Risperdal 0.5 mg twice a day for psychosis Continue Zoloft 50 mg daily for depression/anxiety -The risks, benefits, treatment alternatives of medications were discussed with patient and her family in great detail. We discussed at length the black box warning of antipsychotic medications with elderly and increase the risk of morbidity and mortality. The patient and her family are in agreement to continue antipsychotic medications. -The patient is cleared psychiatrically for discharge. Please contact psychiatry with any questions.
[2021-03-02 14:40] VITALS: BMI 23.3
[2021-03-02 15:16] VITALS: BP 95/72; PULSE 82; RESP 17; TEMP 99.7
== END 2021-03-02 15:54 | disposition home health service (06) | DRG 885 ==
LOC: EC 16:14 → 4SSUR 21:45 → OBSVTOIN 02-25 15:02
PROVIDERS: ADMIT Internal Medicine; ATTEND Internal Medicine
DX: F23 Brief psychotic disorder (principal); F33.9 Major depressive disorder, recurrent, unspecified; F41.1 Generalized anxiety disorder; R45.850 Homicidal ideations; Z20.822 Contact with and (suspected) exposure to COVID-19; Z79.899 Other long term (current) drug therapy; Z82.49 Family history of ischemic heart disease and other diseases of the circulatory system; Z83.3 Family history of diabetes mellitus; B37.9 Candidiasis, unspecified
CPT/HCPCS: 36415; 71046; 80053; 80306; 80320; 81001; 82607; 82746; 84443; 84484; 85025; 85610; 85730; 87086; 87635; 93005; 99285

== ENCOUNTER 2022-03-03 12:04 | Emergency (ER) | payer MEDICARE, BC ==
[2022-03-03 12:10] VITALS: RESP 20; TEMP 98.4
[2022-03-03] MEDS ORDERED: CARBAMIDE PEROXIDE 6.5% DROPS 15 ML BTL BOTH EARS STA (12:44)
--- NOTE | 2022-03-03 12:49 | ED ---
ENT HPI - General Chief complaint: ENT Stated complaint: Ears clogged Time Seen by Provider: 03/03/22 12:32 Source: patient, family, RN notes reviewed Mode of arrival: ambulatory Limitations: no limitations - History of Present Illness Initial comments: This is a 71-year-old female who presents to the emergency department for the feeling of her ears being plugged. States that this started yesterday, and she is having difficulty hearing. When this happened in the past, she needed her ears cleaned out. Her son tried to wash them with water, but was worried about causing any damage and did not do this more than a couple of times. She is not having any ear pain associated with the feeling of them being plugged. Denies any fevers, chills, sore throat, cough, dyspnea, chest pain, palpitations, abdominal pain, nausea, vomiting, diarrhea, back pain, or headaches. MD complaint: other (Ears feel plugged) - Related Data Home Medications Medication Instructions Recorded Confirmed Sertraline [Zoloft] 50 mg PO DAILY 02/24/21 02/24/21 Previous Rx's Medication Instructions Recorded risperiDONE [RisperDAL] 0.5 mg PO BID #60 tab 03/02/21 Allergies Allergy/AdvReac Type Severity Reaction Status Date / Time No Known Allergies Allergy Verified 03/03/22 12:10 Review of Systems ROS Statement: Those systems with pertinent positive or pertinent negative responses have been documented in the HPI. ROS Other: All systems not noted in ROS Statement are negative. Past Medical History Past Medical History: No Reported History History of Any Multi-Drug Resistant Organisms: None Reported Past Surgical History: No Surgical Hx Reported Past Anesthesia/Blood Transfusion Reactions: No Reported Reaction Past Psychological History: Anxiety, Depression Smoking Status: Never smoker Past Alcohol Use History: None Reported Past Drug Use History: None Reported General Exam Limitations: no limitations General appearance: alert, in no apparent distress Head exam: Present: atraumatic, normocephalic, normal inspection ENT exam: Present: other (Bilateral cerumen impaction ) Respiratory exam: Present: normal lung sounds bilaterally. Absent: respiratory distress, wheezes, rales, rhonchi, stridor Cardiovascular Exam: Present: regular rate, normal rhythm, normal heart sounds. Absent: systolic murmur, diastolic murmur, rubs, gallop, clicks Neurological exam: Present: alert, oriented X3, CN II-XII intact Psychiatric exam: Present: normal affect, normal mood Skin exam: Present: warm, dry, intact, normal color. Absent: rash Course Vital Signs 03/03/22 03/03/22 12:08 14:57 Temperature 98.4 F Pulse Rate 104 H 89 Respiratory 20 20 Rate Blood Pressure 143/88 142/69 O2 Sat by Pulse 99 97 Oximetry Procedures - Ear Wax Removal Both Ears Cerumenolytic Used: other (Debrox) Ear Canal Irrigated by: other (PA-C) Ear Canal Irrigated With: warm saline with H2O2 using syringe/angiocath Ear Canal(s) Curetted: plastic loops Results: Re-examined: cerumen removed completely TM Visible: TM(s) intact, normal appearance Ear Canal: bleeding Noted (minor) Medical Decision Making - Medical Decision Making This is a 71-year-old female who presents to the emergency department for a bilateral cerumen impaction. Debrox drops were placed in both ears and allowed to sit for at least 30 minutes. A curette was used to remove most of the ce rumen. Warm water was then used to irrigate the ear canals and assist with the removal of the rest of the cerumen. Patient did note improvement in hearing and the fullness sensation following cerumen removal. Advise she use [id number] Debrox drops if this happens again. Also advised the patient that removing the cerumen can cause some bleeding in the ear canal, and if she notices dried blood she should not be alarmed. Return precautions reviewed in depth, the patient is instructed to return to the emergency department with any new, worsening, or concerning symptoms. Patient verbalized understanding. This case was discussed in detail with the attending ED physician. Presentation, findings, and treatment plan discussed in detail as well. Disposition Clinical Impression: Impacted cerumen of both ears Disposition: HOME SELF-CARE Instructions (If sedation given, give patient instructions): Carbamide Peroxide (Into the ear) Additional Instructions: Return to the emergency department with any new, worsening, or concerning symptoms. You can purchase [id number] Debrox ear drops when you have future episodes of earwax impaction, or if you feel like your ears are clogged. Follow up with your primary care provider in 1-2 days. Is patient prescribed a controlled substance at d/c from ED?: No Referrals: Jameson Valero MD [Primary Care Provider] - 1-2 days
[2022-03-03 14:58] VITALS: BP 142/69; PULSE 89
== END 2022-03-03 14:58 | disposition home or self-care (01) ==
LOC: EC 12:04
DX: H61.23 Impacted cerumen, bilateral (principal)
CPT/HCPCS: 69210; 99282

== ENCOUNTER 2023-07-06 15:38 | Emergency (ER) | payer MEDICARE, BC ==
[2023-07-06 16:07] VITALS: TEMP 98.3
--- NOTE | 2023-07-06 16:16 | ED ---
General Adult HPI - General Chief complaint: Recheck/Abnormal Lab/Rx Stated complaint: Hypertention Time Seen by Provider: 07/06/23 16:15 Source: patient, family, RN notes reviewed Mode of arrival: ambulatory Limitations: no limitations - History of Present Illness Initial comments: Patient is a 72-year-old female presented to ER with chief complaint of hypertension. Patient states her blood pressures have been in the 140s over 110s. Patient recently had an increase of Norvasc to 5 mg daily. Patient states she has a follow-up with PCP on Sunday07/09/23. Patient denies any chest pain, shortness of breath, dizziness, lightheadedness. - Related Data Home Medications Medication Instructions Recorded Confirmed Sertraline [Zoloft] 50 mg PO DAILY 02/24/21 02/24/21 Previous Rx's Medication Instructions Recorded risperiDONE [RisperDAL] 0.5 mg PO BID #60 tab 03/02/21 Allergies Allergy/AdvReac Type Severity Reaction Status Date / Time No Known Allergies Allergy Verified 07/06/23 15:55 Review of Systems ROS Statement: Those systems with pertinent positive or pertinent negative responses have been documented in the HPI. ROS Other: All systems not noted in ROS Statement are negative. Past Medical History Past Medical History: Hypertension History of Any Multi-Drug Resistant Organisms: None Reported Past Surgical History: No Surgical Hx Reported Past Anesthesia/Blood Transfusion Reactions: No Reported Reaction Past Psychological History: Anxiety, Depression Smoking Status: Never smoker Past Alcohol Use History: None Reported Past Drug Use History: None Reported General Exam - General Exam Comments Initial Comments: Visual Physical Exam Vital signs reviewed General: Well-appearing, nontoxic, no acute distress. Head: Normocephalic, atraumatic Eyes: PERRLA, EOMI ENT: Airway patent Chest: Nonlabored breathing Skin: No visual rash, normal skin tone Neuro: Alert and oriented 3 Musculoskeletal: No gross abnormalities Limitations: no limitations General appearance: alert, in no apparent distress Eye exam: Present: normal appearance, PERRL, EOMI. Absent: scleral icterus, conjunctival injection, periorbital swelling Pupils: Present: normal accommodation ENT exam: Present: normal exam, normal oropharynx, mucous membranes moist Neck exam: Present: normal inspection. Absent: tenderness, meningismus, lymphadenopathy Respiratory exam: Present: normal lung sounds bilaterally. Absent: respiratory distress, wheezes, rales, rhonchi, stridor Cardiovascular Exam: Present: regular rate, normal rhythm, normal heart sounds. Absent: systolic murmur, diastolic murmur, rubs, gallop, clicks GI/Abdominal exam: Present: soft, normal bowel sounds. Absent: distended, tenderness, guarding, rebound, rigid Neurological exam: Present: alert, oriented X3, CN II-XII intact Psychiatric exam: Present: normal affect, normal mood Skin exam: Present: warm, dry, intact, normal color. Absent: rash Course Vital Signs 07/06/23 07/06/23 15:49 20:27 Temperature 98.3 F Pulse Rate 115 H 89 Respiratory 16 18 Rate Blood Pressure 118/78 124/89 O2 Sat by Pulse 97 93 L Oximetry Medical Decision Making - Medical Decision Making I performed the quick note portion of this chart. Electronically signed by Afia Johnston PA-C Was pt. sent in by a medical professional or institution ([facility], PHARMACY HELPER, urgent care, hospital, or group home...) When possible be specific @ -No Did you speak to anyone other than the patient for history (EMS, parent, family, police, friend...)? What history was obtained from this source @ -[Family providing some past medical history and HPI. Did you review nursing and triage notes (agree or disagree)? Why? @ -I reviewed and agree with nursing and triage notes Were old charts reviewed (outside hosp., previous admission, EMS record, old EKG, old radiological studies, urgent care reports/EKG's, group home records)? Report findings @ -No old charts were reviewed Differential Diagnosis (chest pain, altered mental status, abdominal pain women, abdominal pain men, vaginal bleeding, weakness, fever, dyspnea, syncope, headache, dizziness, GI bleed, back pain, seizure, CVA, palpatations, mental health, musculoskeletal)? @ -Differential Dizziness: Benign paroxysmal positional Vertigo, Menieres disease, otitis media, acoustic neuroma, vertebrobasilar insufficiency, cerebellar stroke, encephalitis, hypovolemic, arrhythmia, coronary artery syndrome, anemia, this is not meant to be an all-inclusive list EKG interpreted by me (3pts min.). @ -As above X-rays interpreted by me (1pt min.). @ -None done CT interpreted by me (1pt min.). @ -None done U/S interpreted by me (1pt. min.). @ -None done What testing was considered but not performed or refused? (CT, X-rays, U/S, labs)? Why? @ -None What meds were considered but not given or refused? Why? @ -None Did you discuss the management of the patient with other professionals (professionals i.e. Dr., PA, PHARMACY HELPER, lab, RT, psych nurse, social economist, trial lawyer, teacher, chief administrative officer, case management coordinator)? Give summary @ -No Was smoking cessation discussed for >3mins.? @ -No Was critical care preformed (if so, how long)? @ -No Were there social determinants of health that impacted care today? How? (Homelessness, low income, unemployed, alcoholism, drug addiction, transportatio n, low edu. Level, literacy, decrease access to med. care, penitentiary, rehab)? @ -No Was there de-escalation of care discussed even if they declined (Discuss DNR or withdrawal of care, Hospice)? DNR status @ -No What co-morbidities impacted this encounter? (DM, HTN, Smoking, COPD, CAD, Cancer, CVA, ARF, Chemo, Hep., AIDS, mental health diagnosis, sleep apnea, morbid obesity)? @ -Anxiety, hypertension Was patient admitted / discharged? Hospital course, mention meds given and route, prescriptions, significant lab abnormalities, going to OR and other pertinent info. @ -Discharge. Patient is a 72-year-old female presenting to the ER with a chief complaint of hypertension. History and physical exam were completed. Vitals stable. Patient's blood pressure on arrival was 118/78. Repeat 124/89. Patient no signs of acute distress. Nontoxic-appearing. Lung sounds clear to auscultation bilaterally. Patient denied any chest pain, dizziness, lightheadedness. Labs obtained unremarkable. EKG without acute evidence of infarct or ischemia. I discussed lab results with patient and family at bedside. I educated on proper blood pressure measurements. I advised patient to continue taking prescribed medications. Patient reports follow-up with PCP on 07/09/23. Patient be discharged stable condition with follow-up to PCP. Return parameters discussed. Patient expressed understanding and agreement with care plan. Undiagnosed new problem with uncertain prognosis? @ -No Drug Therapy requiring intensive monitoring for toxicity (Heparin, Nitro, Insulin, Cardizem)? @ -No Were any procedures done? @ -No Diagnosis/symptom? @ -Blood pressure check Acute, or Chronic, or Acute on Chronic? @ -Acute Uncomplicated (without systemic symptoms) or Complicated (systemic symptoms)? @ Uncomplicated Side effects of treatment? @ -No Exacerbation, Progression, or Severe Exacerbation? @ -No Poses a threat to life or bodily function? How? (Chest pain, [place], [place], pneumonia, PE, COPD, DKA, ARF, appy, cholecystitis, CVA, Diverticulitis, Homicidal, Suicidal, threat to staff... and all critical care pts) @ -No - Lab Data Result diagrams: 07/06/23 18:24 07/06/23 18:24 Lab Results 07/06/23 07/06/23 Range/Units 18:24 18:24 WBC 11.0 H (3.8-10.6) k/uL RBC 4.71 (3.80-5.40) m/uL Hgb 14.5 (11.4-16.0) gm/dL Hct 43.6 (34.0-46.0) % MCV 92.6 (80.0-100.0) fL MCH 30.9 (25.0-35.0) pg MCHC 33.3 (31.0-37.0) g/dL RDW 13.4 (11.5-15.5) % Plt Count 284 (150-450) k/uL MPV 7.9 Sodium 141 (137-145) mmol/L Potassium 4.0 (3.5-5.1) mmol/L Chloride 105 (98-107) mmol/L Carbon Dioxide 26 (22-30) mmol/L Anion Gap 10 mmol/L BUN 18 H (7-17) mg/dL Creatinine 0.68 (0.52-1.04) mg/dL Est GFR (CKD-EPI)AfAm >90 (>60 ml/min/1.73 sqM) Est GFR (CKD-EPI)NonAf 87 (>60 ml/min/1.73 sqM) Glucose 111 H (74-99) mg/dL Calcium 9.9 (8.4-10.2) mg/dL Total Bilirubin 0.6 (0.2-1.3) mg/dL AST 29 (14-36) U/L ALT 21 (4-34) U/L Alkaline Phosphatase 84 (38-126) U/L Total Protein 7.3 (6.3-8.2) g/dL Albumin 4.4 (3.5-5.0) g/dL - EKG Data -: EKG Interpreted by Me EKG Comments: EKG taken at 18: 24 shows sinus rhythm with sinus arrhythmia. No acute ST segment or T wave abnormalities. Ventricular rate 95, [place] interval 148, QRS duration 80, QT/QTc 334/419. Disposition Clinical Impression: Hypertension, Dizziness Disposition: HOME SELF-CARE Condition: Stable Instructions (If sedation given, give patient instructions): How to Take a Blood Pressure (ED), Hypertension (ED) Additional Instructions: Please follow-up with PCP on Sunday as scheduled. Continue taking medications as prescribed. Return to the ER for any new or worsening symptoms. Is patient prescribed a controlled substance at d/c from ED?: No Referrals: Corky Valero MD [Primary Care Provider] - 1-2 days Time of Disposition: 19:56
[2023-07-06 18:35] LABS: HCT 43.6 % (34.0-46.0); HGB 14.5 gm/dL (11.4-16.0); MCH 30.9 pg (25.0-35.0); MCHC 33.3 g/dL (31.0-37.0); MCV 92.6 fL (80.0-100.0); Mean Platelet Volume 7.9; Platelet Count 284 k/uL (150-450); RBC 4.71 m/uL (3.80-5.40); RDW 13.4 % (11.5-15.5)
[2023-07-06 18:48] LABS: ALT 21 U/L (4-34); AST 29 U/L (14-36); African American GFR (CKD) >90 (>60 ml/min/1.73 sqM); Albumin 4.4 g/dL (3.5-5.0); Alkaline Phosphatase 84 U/L (38-126); Anion Gap 10 mmol/L; Blood Urea Nitrogen 18 mg/dL (7-17); Calcium 9.9 mg/dL (8.4-10.2); Carbon Dioxide 26 mmol/L (22-30); Chloride 105 mmol/L (98-107); Glucose 111 mg/dL (74-99); Non-African American GFR(CKD) 87 (>60 ml/min/1.73 sqM); Sodium 141 mmol/L (137-145); Total Bilirubin 0.6 mg/dL (0.2-1.3); Total Protein 7.3 g/dL (6.3-8.2)
[2023-07-06 20:42] VITALS: BP 124/89; PULSE 89; RESP 18
== END 2023-07-06 20:29 | disposition home or self-care (01) ==
LOC: EC 15:38
DX: I10 Essential (primary) hypertension (principal); I49.8 Other specified cardiac arrhythmias; F41.9 Anxiety disorder, unspecified; F32.A Depression, unspecified; Z79.899 Other long term (current) drug therapy
CPT/HCPCS: 36415; 80053; 85027; 93005; 99283